=== PATIENT | male | born 1945 | race Caucasian/White ===

== ENCOUNTER 2022-04-01 18:23 | Emergency (ER) | payer MEDICARE, OTHER, SELFPAY ==
[2022-04-01 18:32] VITALS: BP 153/84; PULSE 52; RESP 18; TEMP 35.8; O2SAT 100; BMI 24.3
--- NOTE | 2022-04-01 18:40 | DI.RAD.S_ITS ---
PROCEDURE: XR CHEST 1V INDICATIONS: chest pain TECHNIQUE: One view of the chest was acquired. COMPARISON: None. FINDINGS: Surgical changes and devices: None. Lungs and pleura: Lungs are clear. No pleural effusions or pneumothorax. Mediastinum: Mediastinal contours appear normal. Heart size is normal. Bones and chest wall: No suspicious bony lesions. Overlying soft tissues appear unremarkable. IMPRESSION: No acute cardiopulmonary pathology. Dictated by: Jerry Mendez M.D. on 04/01/2022 at 19:05 Approved by: Jerry Mendez M.D. on 04/01/2022 at 19:07
[2022-04-01 19:03] VITALS: PULSE 53; RESP 31; O2SAT 98
[2022-04-01 19:06] VITALS: BP 141/82; PULSE 52; RESP 21; O2SAT 98
[2022-04-01 19:30] VITALS: BP 140/80; PULSE 53; RESP 17; O2SAT 98
[2022-04-01 19:35] LABS: Add Manual Diff / Slide Review NO; Basophils Absolute Auto 100 /uL (0-100); Basophils Percent Auto 0.8 % (0-2); Eosinophils Absolute Auto 200 /uL (0-450); Eosinophils Percent Auto 3.2 % (2-4); Hematocrit 42.8 % (41-53); Lymphocytes Absolute Auto 1700 /uL (1100-4500); Mean Corpuscular Hemoglobin 32.3 PG (26-34); Mean Corpuscular Volume 92.5 fL (80-100); Monocytes Absolute Auto 600 /uL (0-900); Monocytes Percent Auto 8.1 % (3-14); Neutrophils Absolute Auto 4600 /uL (1500-7000); Neutrophils Percent Auto 63.9 % (50-75); Platelet Count 179 X10^3/uL (150-400); Red Blood Cell Count 4.63 X10^6/uL (4.5-5.9); Red Cell Distribution Width 12.6 % (11.6-14.8); White Blood Cell Count 7.3 X10^3/uL (4.5-11.0)
[2022-04-01 19:46] LABS: Alanine Aminotransferase 26 IU/L (<50); Albumin Globulin Ratio 1.4 (1.0-2.8); Alkaline Phosphatase 66 U/L (38-126); Aspartate Aminotransferase 25 IU/L (17-59); BUN Creatinine Ratio 22.6 (6-22); Bilirubin Total 0.4 mg/dL (0.2-1.3); Blood Urea Nitrogen 19 mg/dL (9-20); Calcium 8.7 mg/dL (8.4-10.2); Carbon Dioxide 30 mmol/L (22-32); Chloride 101 mmol/L (98-107); Creatine Kinase 80 U/L (55-170); Estimated Glomerular Filt Rate > 60 mL/min (>60); Globulin 2.9 g/dL (1.7-4.1); Glucose 90 mg/dL (80-110); HEMOLYSIS 18 (0-50); Lipase 110 U/L (23-300); Magnesium 1.8 mg/dL (1.6-2.3); Potassium 3.7 mmol/L (3.4-5.1); Sodium 139 mmol/L (137-145); Total Protein 6.9 g/dL (6.3-8.2)
[2022-04-01 19:58] LABS: Troponin I 0.014 ng/mL (0.01-0.034)
[2022-04-01 20:00] VITALS: BP 138/74; PULSE 53; RESP 12; O2SAT 98
--- NOTE | 2022-04-01 20:28 | ED_ITS ---
HPI - Arrhythmia/Palpitations General Chief Complaint: Arrhythmia/Palpitations Stated Complaint: Abnormal EKG Time Seen by Provider: 04/01/22 19:00 Source: patient Mode of arrival: Ambulatory History of Present Illness HPI narrative: 76-year-old male smoker with history of AFib on anticoagulation, hypertension, hyperlipidemia presents with a chief complaint of an episode of AFib earlier today that lasted about 12 hours. He states that he frequently has bouts of AFib about once per week and they typically last about 30 minutes but today it lasted about 12 hours so he decided to come get evaluated. Thankfully, his symptoms resolved long before his arrival. He lives in [place] but is visiting locally with family and states that he has been eating a bit more than normal and started smoking a few cigarettes per day but denies any other change in his medications, diet or activity. He states that when the atrial fibrillati on was present it was irregular and he fell palpitations but never any chest pain or shortness of breath nor dizziness, weakness or lightheadedness. He denies any nausea, vomiting or diarrhea and has no abdominal pain. He is had no fever or chills. He is completely asymptomatic at present. He is also requesting short refills of his medications as he expects to run out tomorrow. Related Data Previous Rx's Medication Instructions Recorded bupropion HCl 150 mg tablet,12 hr 150 mg PO BID 10 days #20 ea 04/01/22 sustained-release clopidogrel 75 mg tablet 75 mg PO DAILY #10 tabs 04/01/22 ezetimibe 10 mg tablet 10 mg PO DAILY #10 tabs 04/01/22 olmesartan 40 mg tablet 40 mg PO DAILY #10 tabs 04/01/22 pantoprazole 20 mg tablet,delayed 20 mg PO BEDTIME #10 tabs 04/01/22 release rivaroxaban 20 mg tablet (Xarelto) 20 mg PO DAILY #10 tabs 04/01/22 rosuvastatin 20 mg tablet 20 mg PO DAILY #10 tabs 04/01/22 sotalol 80 mg tablet See Rx Instructions .Route 04/01/22 .COMPLEX #15 tabs Allergies Allergy/AdvReac Type Severity Reaction Status Date / Time No Known Drug Allergies Allergy Verified 04/01/22 18:39 Review of Systems Review of Systems Narrative: GENERAL: Denies chills, fatigue, malaise, fever, sweats. HEENT: Denies sinus pain, ear pain, sore throat, difficulty swallowing, dizziness. RESPIRATORY: Denies dyspnea, cough, wheezing, hemoptysis, sputum. CARDIOVASCULAR: See HPI GASTROINTESTINAL: Denies nausea, vomiting, abdominal pain, diarrhea, constipation, melena. : Denies dysuria, frequency, incontinence, hematuria, urinary retention. MUSCULOSKELETAL: denies weakness, joint pain, or bony pain SKIN: Denies rash, skin lesions, or other NEUROLOGIC: Denies weakness, headache, numbness, change in speech, confusion, seizures, incoordination. PSYCHIATRIC: No concerning psychosocial issues. 12 point review of systems is negative except for those stated above Patient History Social History Smoking Status: Current every day smoker Smoking Status: Current every day smoker Substance Use Type: does not use Exam Narrative Exam Narrative: GENERAL: [76] year old patient appears stated age. Well-developed patient, in mild distress. HEAD: Atraumatic. Normocephalic. EYES: Pupils equal round and reactive. Extraocular motions intact. No scleral icterus. No injection or drainage. ENT: Nose without bleeding, purulent drainage. Throat without erythema, tonsillar hypertrophy or exudate. Airway patent. NECK: Trachea midline. Non tender CARDIOVASCULAR: Regular rate and rhythm without murmurs, gallops, or rubs. RESPIRATORY: Clear to auscultation. Breath sounds equal bilaterally. No wheezes, rales, or rhonchi. GASTROINTESTINAL: Abdomen soft, non-tender, nondistended. EXTREMITIES: No edema or joint tenderness. BACK: Nontender without deformity or crepitance. No flank tenderness. NEURO: AOx3. SKIN: No rash or erythema of visible areas Initial Vital Signs Initial Vital Signs: Vital Signs Temperature 96.5 F L 04/01/22 18:32 Pulse Rate 52 L 04/01/22 18:32 Respiratory Rate 18 04/01/22 18:32 Blood Pressure 153/84 H 04/01/22 18:32 Pulse Oximetry 100 04/01/22 18:32 Oxygen Delivery Method 04/01/22 18:32 Course Orders Ordered: ED Orders 04/01/22 18:40 XR chest 1V Stat EKG-12 Lead Stat 04/01/22 19:13 Complete Blood Count AUTO DIFF Stat Comprehensive Metabolic Panel Stat Lipase Stat Magnesium Stat Troponin & CK Cardiac Panel Stat Vital Signs Vital signs: Vital Signs - 8 hr 04/01/22 18:32 04/01/22 19:03 04/01/22 19:06 Temperature 96.5 F L Pulse Rate 52 L 53 L 52 L Respiratory Rate 18 31 H 21 Blood Pressure 153/84 H Pulse Oximetry 100 98 98 Oxygen Delivery Method Room Air Room Air Room Air 04/01/22 19:06 04/01/22 19:30 04/01/22 19:30 Temperature Pulse Rate 53 L Respiratory Rate 17 Blood Pressure 141/82 H 140/80 Pulse Oximetry 98 Oxygen Delivery Method Room Air 04/01/22 20:00 04/01/22 20:00 04/01/22 20:30 Temperature Pulse Rate 53 L Respiratory Rate 12 Blood Pressure 138/74 153/83 H Pulse Oximetry 98 Oxygen Delivery Method Room Air 04/01/22 20:30 Temperature Pulse Rate 56 L Respiratory Rate 16 Blood Pressure Pulse Oximetry 98 Oxygen Delivery Method Room Air MDM - Arrhythmia/Palpitations Lab Data Result diagrams: 04/01/22 19:13 04/01/22 19:13 Labs: Lab Results 04/01/22 04/01/22 Range/Units 19:13 19:13 WBC 7.3 (4.5-11.0) X10^3/uL RBC 4.63 (4.5-5.9) X10^6/uL Hgb 15.0 (13.5-17.5) g/dL Hct 42.8 (41-53) % MCV 92.5 (80-100) fL MCH 32.3 (26-34) PG MCHC 35.0 (30-36) % RDW 12.6 (11.6-14.8) % Plt Count 179 (150-400) X10^3/uL Neut % (Auto) 63.9 (50-75) % Lymph % (Auto) 24.0 L (25-40) % Pitt % (Auto) 8.1 (3-14) % Eos % (Auto) 3.2 (2-4) % Baso % (Auto) 0.8 (0-2) % Neut # (Auto) 4600 (3889-1896) /uL Lymph # (Auto) 1700 (4379-7674) /uL Pitt # (Auto) 600 (0-900) /uL Eos # (Auto) 200 (0-450) /uL Baso # (Auto) 100 (0-100) /uL Sodium 139 (137-145) mmol/L Potassium 3.7 (3.4-5.1) mmol/L Chloride 101 (98-107) mmol/L Carbon Dioxide 30 (22-32) mmol/L BUN 19 (9-20) mg/dL Creatinine 0.84 (0.66-1.25) mg/dL Estimated GFR > 60 (>60) mL/min BUN/Creatinine Ratio 22.6 H (6-22) Glucose 90 (80-110) mg/dL Calcium 8.7 (8.4-10.2) mg/dL Magnesium 1.8 (1.6-2.3) mg/dL Total Bilirubin 0.4 (0.2-1.3) mg/dL AST 25 (17-59) IU/L ALT 26 (<50) IU/L Alkaline Phosphatase 66 (38-126) U/L Total Creatine Kinase 80 (55-170) U/L CK-MB (CK-2) TNP CK-MB (CK-2) Rel Index TNP Troponin I 0.014 (0.01-0.034) ng/mL Total Protein 6.9 (6.3-8.2) g/dL Albumin 4.0 (3.5-5.0) g/dL Globulin 2.9 (1.7-4.1) g/dL Albumin/Globulin Ratio 1.4 (1.0-2.8) Lipase 110 (23-300) U/L ECG Data Interpretation: [1843] EKG is sinus bradycardia with rate of 52 and free of any signs of ischemia or ectopy. No ST segmental elevation or depression. No T wave inversions MDM Narrative Medical decision making narrative: Patient with history of atrial fibrillation had an episode of AFib earlier today with spontaneous resolution. He is completely asymptomatic for the duration of his visit with reassuring labs and vitals. His medications were refilled and sent to his pharmacy of choice, he is given return precautions and questions have been answered to his apparent satisfaction Discharge Plan Departure Patient Disposition: Home Clinical Impression: Atrial fibrillation Instructions: DI for Atrial Fibrillation Activity Restrictions/Additional Instructions: *You have been diagnosed with [atrial fibrillation with spontaneous resolution] *What to do: *Please continue to take your regular medications as directed. [ x] New medication prescriptions sent to your pharmacy: [ [facility]] [ ] New medication written as a paper prescription [ ] No new medications given *Please follow up with your primary care provider in 2-3 days, call for an appointment. Let them know you were seen in the Emergency Department and that we ask that you be seen in follow up. We will electronically transmit a record of today's note if your PCP is in our system *Return to Emergency Department if you should have any new, worsening or concerning symptoms Prescriptions: New olmesartan 40 mg tablet 40 mg PO DAILY Qty: 10 0RF bupropion HCl 150 mg tablet sustained-release 12 hr 150 mg PO BID 10 Days Qty: 20 0RF Xarelto 20 mg tablet 20 mg PO DAILY Qty: 10 0RF Rx Instructions: must administer with evening meal clopidogrel 75 mg tablet 75 mg PO DAILY Qty: 10 0RF pantoprazole 20 mg tablet,delayed release (DR/EC) 20 mg PO BEDTIME Qty: 10 0RF rosuvastatin 20 mg tablet 20 mg PO DAILY Qty: 10 0RF ezetimibe 10 mg tablet 10 mg PO DAILY Qty: 10 0RF sotalol 80 mg tablet See Rx Instructions .ROUTE .COMPLEX Qty: 15 0RF Rx Instructions: 40mg orally in the morning 80 mg orally in the evening
[2022-04-01 20:30] VITALS: BP 153/83; PULSE 56; RESP 16; O2SAT 98
== END 2022-04-01 20:47 | disposition home or self-care (01) ==
PROVIDERS: Emergency Provider Emergency Medicine
DX: I48.91 Unspecified atrial fibrillation (principal); Z79.01 Long term (current) use of anticoagulants; R07.9 Chest pain, unspecified
CPT/HCPCS: 36415; 71045; 80053; 82550; 83690; 83735; 84484; 85025; 93005; 99284